=== PATIENT | male | born 1950 ===

== ENCOUNTER 2017-09-09 11:35 | Emergency (ER) | payer MEDICARE ==
[2017-09-09 11:35] VITALS: BMI 39.9
--- NOTE | 2017-09-09 13:45 | C.PDOC ---
History Of Present Illness 66 y/o male with PMHx of HTN and DM, esrd on hd, m/w/f, sent to ED from same day surgery for potassium of 7.2, drawn this morning prior to bladder surgery. surgery was postponed and pt sent to ed. last hd yesterday. At ED patent is asymptomatic, requesting food and denies dizziness, nausea, vomiting or any other complaints at this time. Time Seen by Provider: 09/09/17 12:30 Chief Complaint (Nursing): Abnormal Labs History Per: Patient History/Exam Limitations: no limitations Onset/Duration Of Symptoms: Hrs Current Symptoms Are (Timing): Still Present Past Medical History Reviewed: Historical Data, Nursing Documentation, Vital Signs Vital Signs: Last Vital Signs Temp 98.6 F 09/09/17 15:58 Pulse 105 H 09/09/17 15:58 Resp 17 09/09/17 15:58 BP 136/79 09/09/17 15:58 Pulse Ox 96 09/09/17 17:55 - Medical History PMH: Anemia, Arthritis, Colonic Polyps, Chronic Kidney Disease Surgical History: No Surg Hx Family History: States: No Known Family Hx - Social History Hx Alcohol Use: No Hx Substance Use: No Review Of Systems Constitutional: Negative for: Fever, Chills Gastrointestinal: Negative for: Nausea, Vomiting Skin: Negative for: Rash Neurological: Negative for: Dizziness Physical Exam - Physical Exam Appears: Non-toxic, No Acute Distress Skin: Warm, Dry, No Rash Head: Atraumatic, Normacephalic Eye(s): bilateral: Normal Inspection Oral Mucosa: Moist Neck: Normal ROM, Supple Cardiovascular: Rhythm Regular Respiratory: Normal Breath Sounds, No Rales, No Rhonchi, No Wheezing Gastrointestinal/Abdominal: Soft, No Tenderness, No Guarding, No Rebound Extremity: Normal ROM, Capillary Refill (<2 seconds) Neurological/Psych: Oriented x3, Normal Speech, Normal Cognition ED Course And Treatment - Laboratory Results Result Diagrams: 09/09/17 13:47 ECG: Interpreted By Me, Viewed By Me ECG Rhythm: Sinus Rhythm Interpretation Of ECG: nsr, left axis deviation, no peaked t waves noted O2 Sat by Pulse Oximetry: 96 (RA) Pulse Ox Interpretation: Normal Medical Decision Making Medical Decision Making: Plan: ECG and BMP ordered Progress: Pending Dr. Álvarez call back 230 pm potasisum redrawn in edm now 10/29. no peaked t waves on ekg. discussed with Dr Colby, renal; she sts pt's k is chronically in the low 6's all the time ; pt takes kayexelate at home on regular basis; pt's K likely more elevated than usual because fasting and did not take medication today for pre-op. she requests a dose of 60 g here in the ed and sts pt may be discharged, to take an extra dose tonight at home, and go for hd tomorrow. Disposition Counseled Patient/Family Regarding: Studies Performed, Diagnosis, Need For Followup - Disposition Referrals: Lola Colby MD [Medical Doctor] - Disposition: HOME/ ROUTINE Disposition Time: 15:41 Condition: GOOD Additional Instructions: [place] shyla dosis extra de Kayexelate esta noche; ir a la dilisis dennis est programado maana. Reprograme gutierrez procedimiento con el Dr. Uribe. Carline un seguimiento con el Dr. Colby.Take extra dose Kayexelate tonight; go for dialysis as scheduled tomorrow. Reschedule your procedure with Dr Uribe. Follow up with Dr Colby Forms: Gen Discharge Inst Barbadian, [employer] (Barbadian) Print Language: GUINEAN - Clinical Impression Clinical Impression: Hyperkalemia - PA / KELP GATHERER / Resident Statement MD/DO has reviewed & agrees with the documentation as recorded. - Scribe Statement The provider has reviewed the documentation as recorded by the Scribe Young Jose All medical record entries made by the Scribe were at my direction and personally dictated by me. I have reviewed the chart and agree that the record accurately reflects my personal performance of the history, physical exam, medical decision making, and the department course for this patient. I have also personally directed, reviewed, and agree with the discharge instructions and disposition.
[2017-09-09 14:16] LABS: CALCIUM 9.8 mg/dl (8.6-10.4)
[2017-09-09] MEDS ORDERED: Sod Polystyrene Sulf 15 gm/60 ml Susp PO ONE (14:37)
[2017-09-09] MEDS ORDERED: Sod Polystyrene Sulf 15 gm/60 ml Susp ONE (15:05)
[2017-09-09 15:59] VITALS: BP 136/79; PULSE 105; RESP 17; TEMP 98.6
[2017-09-09 17:55] VITALS: O2SAT 96
--- NOTE | 2017-09-11 12:03 | CARD ---
APPROVED REPORT EKG Measurement Heart [id number] <Conclusion> Normal sinus rhythm Left axis deviation Abnormal ECG
== END 2017-09-09 16:03 | disposition home or self-care (01) ==
LOC: C.ER 11:35
DX: E87.5 Hyperkalemia (principal); E11.9 Type 2 diabetes mellitus without complications

== ENCOUNTER → 2017-09-09 | Day surgery (SDC) | payer MEDICARE ==
[2017-09-05 08:57] VITALS: BMI 39.9
[~2017-09-09] MED LIST: Ciprofloxacin 400mg/200ml D5W 0 MG/0 ML BAG IVPB ONE; Gentamicin 160 MG in Sodium Chloride 0.9% 100 ML IVPB ONE; Lidocaine 2% Jelly (Uro-Jet) ONE
[2017-09-09 09:24] VITALS: BP 129/78; PULSE 91; RESP 20; TEMP 97.8; O2SAT 96
[2017-09-09 09:52] LABS: CALCIUM 9.8 mg/dl (8.6-10.4)
--- NOTE | 2017-09-09 13:12 | CP.PCM.CON ---
History of Present Illness - History of Present Illness History of Present Illness: 66 y/o ESRD MWF, anemia, DMII obesity probable MAGEN, here for cystoscopy, possible resection bladder tumor, ultrasound guided prostate biopsy. Denies any chest pain, SOB, palpitations, syncope, n/v, or other symptoms. Past Patient History - Past Medical History & Family History Past Medical History?: Yes - Past Social History Smoking Status: Never Smoked - CARDIAC Hx Cardiac Disorders: No - PULMONARY Hx Respiratory Disorders: No - NEUROLOGICAL Hx Neurological Disorder: Yes Hx Dizziness: Yes (WHEN HYPOGLYCEMIC) - HEENT Hx HEENT Problems: Yes (POOR EYESIGHT) - RENAL Hx Chronic Kidney Disease: Yes Type of Dialysis Access: RIGHT ARM FISTULA Date of Last Dialysis Treatment: 09/08/17 Hx Renal Failure: Yes - ENDOCRINE/METABOLIC Hx Endocrine Disorders: Yes Hx Diabetes Mellitus Type 2: Yes - HEMATOLOGICAL/ONCOLOGICAL Hx Blood Disorders: Yes Hx Anemia: Yes - INTEGUMENTARY Hx Dermatological Problems: No - MUSCULOSKELETAL/RHEUMATOLOGICAL Hx Musculoskeletal Disorders: Yes Hx Arthritis: Yes - GASTROINTESTINAL Hx Gastrointestinal Disorders: Yes - GENITOURINARY/GYNECOLOGICAL Hx Genitourinary Disorders: Yes Hx Hematuria: Yes Hx Prostate Problems: Yes - PSYCHIATRIC Hx Psychophysiologic Disorder: No - SURGICAL HISTORY Hx Surgeries: Yes Hx Vascular Surgery: Yes ( FISTULA LEFT ARM NON FUNCTIONING) Other/Comment: PERMA CATH INSERTION AND REMOVAL - ANESTHESIA Hx Anesthesia: Yes Hx Anesthesia Reactions: No Hx Malignant Hyperthermia: No Has any member of the family had a problem w/ anesthesia?: No Meds Allergies/Adverse Reactions: Allergies Allergy/AdvReac Type Severity Reaction Status Date / Time No Known Allergies Allergy Verified 09/05/17 08:57 Physical Exam - Constitutional Appears: Well, No Acute Distress - ENT Exam ENT Exam: Normal Exam - Respiratory Exam Respiratory Exam: Clear to Auscultation Bilateral - Cardiovascular Exam Cardiovascular Exam: REGULAR RHYTHM - GI/Abdominal Exam GI & Abdominal Exam: Normal Bowel Sounds, Soft - Extremities Exam Extremities exam: Positive for: normal inspection - Neurological Exam Neurological exam: Alert, Oriented x3 - Skin Skin Exam: Normal Color Results - Vital Signs Recent Vital Signs: Last Vital Signs Temp 97.8 F 09/09/17 08:40 Pulse 91 H 09/09/17 08:40 Resp 20 09/09/17 08:40 BP 129/78 09/09/17 08:40 Pulse Ox 96 09/09/17 08:40 - Labs Result Diagrams: 09/09/17 10:15 Labs: Laboratory Results - last 24 hr 09/09/17 09/09/17 09/09/17 09:02 09:18 10:15 Sodium 141 143 Potassium 7.0 H* 7.2 H* Chloride 96 L 97 L Carbon Dioxide 28 30 Anion Gap 23 H 23 H BUN 42 H 41 H Creatinine 11.3 H* 11.9 H* Est GFR ( Amer) 5 5 Est GFR (Non-Af Amer) 5 4 POC Glucose (mg/dL) 124 H Random Glucose 110 109 Calcium 9.8 10.0 09/09/17 12:22 Sodium Potassium Chloride Carbon Dioxide Anion Gap BUN Creatinine Est GFR ( Amer) Est GFR (Non-Af Amer) POC Glucose (mg/dL) 91 Random Glucose Calcium Assessment & Plan - Assessment and Plan (Free Text) Assessment: 66 y/o ESRD MWF, anemia, DMII obesity probable MAGEN, here for cystoscopy, possible resection bladder tumor, ultrasound guided prostate biopsy. Denies any chest pain, SOB, palpitations, syncope, n/v, or other symptoms. Patient states last dialysis yesterday. This morning he has potassium of 7.0, repeat 7.2, and therefore should not proceed to surgery as needs to be optimized. Surgery is non urgent as discussed with Dr. Draper. Patient is aysmptomatic, stable for transport, recommend admission to ER for treatment of hyperkalemia and ECG.
== END | disposition home or self-care (01) ==
LOC: C.SDS 08:23
PROVIDERS: ATTEND Urology
DX: R31.0 Gross hematuria (principal); N18.6 End stage renal disease; Z99.2 Dependence on renal dialysis; E66.9 Obesity, unspecified; D64.9 Anemia, unspecified; Z68.39 Body mass index [BMI] 39.0-39.9, adult; Z53.09 Procedure and treatment not carried out because of other contraindication; E11.22 Type 2 diabetes mellitus with diabetic chronic kidney disease; E87.5 Hyperkalemia
CPT/HCPCS: 36415; 80048; 82948

== ENCOUNTER 2017-09-17 08:10 | Day surgery (SDC) | payer MEDICARE ==
[2017-09-17 09:15] LABS: CALCIUM 10.3 mg/dl (8.6-10.4)
[2017-09-17] MEDS ORDERED: Ciprofloxacin 400mg/200ml D5W 400 MG/200 ML BAG IVPB ONE (10:04)
[2017-09-17] MEDS ORDERED: Propofol 10 mg/ml Inj (20 ML) ONE (10:11)
[2017-09-17] MEDS ORDERED: Gentamicin 160 MG in Sodium Chloride 0.9% 100 ML IVPB ONE (10:15)
[2017-09-17] MEDS ORDERED: Phenylephrine 10 mg/ml Inj ONE (10:25)
[2017-09-17] MEDS ORDERED: Lidocaine 2% Jelly (Uro-Jet) ONE (10:29)
[2017-09-17] MEDS ORDERED: HYDROmorphone 0.5 mg/0.5 ml ISec IVP PRN (11:16)
[2017-09-17 12:32] VITALS: O2SAT 98
[2017-09-17 12:48] VITALS: BP 157/65; PULSE 69; RESP 18; TEMP 98
--- NOTE | 2017-09-18 12:46 | OP ---
PROCEDURE DATE: 09/17/2017 PREOPERATIVE DIAGNOSES: Elevated prostate-specific antigen (95) and bladder mass. POSTOPERATIVE DIAGNOSES: Bladder mass possible median lobe, enlarged prostate with bladder outlet obstruction and compensatory hypertrophy of the bladder. PROCEDURE: Ultrasound-guided transrectal biopsy and cystoscopy and biopsy of bladder mass/median lobe. SURGEON: Jeferson Draper MD DESCRIPTION OF PROCEDURE: The patient was asked to sign a detailed informed consent prior to the procedure. He agreed to the risks and complications of this procedure and its limitations. He was brought in to the room and a time-out was taken according to the rules and regulations of [facility]. The patient was subjected to transrectal ultrasonography and using the ultrasound as a guide using the biopsy guide on the machine, a 12 core biopsy was taken. The patient tolerated this well. There was no rectal bleeding. The patient was then draped and prepped in the usual manner and cystoscoped with #21 Storz panendoscope. The pendulous and membranous urethra was normal. The prostatic urethra showed trilobar hypertrophy of the bladder with considerable outlet obstruction. The bladder was entered atraumatically. There was a mass at the bladder neck, which appeared to be a median lobe. A separate transitional cell tumor could not be ruled out. It was elected to biopsy this area, which was done and the biopsied areas were fulgurated. There was no bleeding. The two path results will determine what the proper therapy is once we are aware of what the pathology is. The patient tolerated this procedure well and was sent to the recovery room in good condition. Jeferson Draper MD
== END 2017-09-17 14:03 | disposition home or self-care (01) ==
LOC: C.SDS 08:10
PROVIDERS: ATTEND Urology
DX: C61 Malignant neoplasm of prostate (principal); R31.0 Gross hematuria; N32.9 Bladder disorder, unspecified; N40.1 Benign prostatic hyperplasia with lower urinary tract symptoms; N13.8 Other obstructive and reflux uropathy
CPT/HCPCS: 36415; 52204; 55700; 76872; 80048; 88305; 88342; C1769; J0744; J1580

== ENCOUNTER 2018-07-06 15:52 | Emergency (ER) | payer MEDICARE, MEDICAID ==
[2018-07-06 16:03] VITALS: BMI 40.7
[2018-07-06] MEDS ORDERED: Sodium Chloride 0.9% 500 ML IV ONE (16:16)
--- NOTE | 2018-07-06 16:50 | RAD ---
Date of service: 07/06/2018 PROCEDURE: CHEST RADIOGRAPH, 1 VIEW HISTORY: SOB COMPARISON: None available. FINDINGS: LUNGS: Clear. PLEURA: No pneumothorax or pleural fluid seen. CARDIOVASCULAR: Aortic atherosclerotic calcifications. Cardiomediastinal silhouette enlarged. OSSEOUS STRUCTURES: Spinal degenerative changes. VISUALIZED UPPER ABDOMEN: Normal. OTHER FINDINGS: None. IMPRESSION: No active disease.
[2018-07-06 17:16] LABS: ALB/GLOB RATIO 1.3 (1.0-2.1); ALBUMIN 5.1 g/dL (3.5-5.0); CALCIUM 9.2 mg/dl (8.6-10.4)
[2018-07-06 17:24] LABS: BASO # 0.1 K/uL (0.0-0.2); EOS # 0.2 K/uL (0.0-0.7); HEMOGLOBIN 15.3 g/dL (12.0-18.0); LYMPH # 0.6 K/uL (1.0-4.3); NRBC % 0.1 % (0.0-2.0)
[2018-07-06 17:25] LABS: TROPONIN I 0.014 ng/mL (0.00-0.120)
[2018-07-06 17:32] LABS: EOS % 2.9 % (0.0-4.0); MEAN CELL VOLUME 94.2 fL (80.0-94.0); MEAN CORPUSCULAR HGB CONC 32.9 g/dL (33.0-37.0); MEAN PLATELET VOLUME 9.4 fL (7.2-11.7); MONO # 0.5 K/uL (0.0-0.8); MONO % 7.4 % (0.0-10.0); NEUT # 4.7 K/uL (1.8-7.0); RBC 4.95 Mil/uL (4.40-5.90); RED CELL DISTRIBUTION WIDTH 15.5 % (11.5-14.5); WHITE BLOOD COUNT 6.1 K/uL (4.8-10.8)
[2018-07-06 17:35] LABS: LYMPH % 10.3 % (20.0-40.0)
--- NOTE | 2018-07-06 17:41 | C.PDOC ---
History Of Present Illness 67 year old male presents to ED with complaint of feeling lethargic. Patient came with sister after dialysis. He frequently feels this way after a full session. Patient states he took off 4 kg. Patient denies nausea, vomiting, and light-headedness. Time Seen by Provider: 07/06/18 16:11 Chief Complaint (Nursing): Weakness/Neurological Deficit History Per: Patient History/Exam Limitations: no limitations Onset/Duration Of Symptoms: Hrs Current Symptoms Are (Timing): Still Present Associated Symptoms Preceding Syncopal Episode: denies: Lightheadedness Past Medical History Reviewed: Historical Data, Nursing Documentation, Vital Signs Vital Signs: Last Vital Signs Temp 97.6 F 07/06/18 16:03 Pulse 97 H 07/06/18 17:23 Resp 19 07/06/18 17:23 BP 98/54 L 07/06/18 17:23 Pulse Ox 98 07/06/18 17:23 - Medical History PMH: Anemia, Arthritis, Colonic Polyps, Chronic Kidney Disease Surgical History: No Surg Hx Family History: States: Unknown Family Hx - Social History Hx Alcohol Use: No Hx Substance Use: No Review Of Systems Constitutional: Positive for: Other (lethargic). Negative for: Fever, Chills Cardiovascular: Negative for: Chest Pain, Palpitations, Light Headedness Respiratory: Negative for: Cough, Shortness of Breath Gastrointestinal: Negative for: Nausea, Vomiting Neurological: Negative for: Weakness, Numbness, Dizziness Physical Exam - Physical Exam Appears: Well, Non-toxic, No Acute Distress, Other (obese) Skin: Normal Color, Warm, Dry Head: Atraumatic, Normacephalic Neck: Normal ROM, Supple Chest: Symmetrical, No Deformity Respiratory: No Accessory Muscle Use Extremity: Capillary Refill (<2 seconds) Extremity: Right: Other (AV fistula in upper arm) Pulses: Left Radial: Normal, Right Radial: Normal Neurological/Psych: Oriented x3, Normal Speech, Normal Cognition ED Course And Treatment - Laboratory Results Result Diagrams: 07/06/18 17:18 07/06/18 16:48 Lab Results: Troponin I 0.0140 ng/mL (0.00-0.120) 07/06/18 16:48 NT-Pro-B Natriuret Pep 754 pg/mL (0-900) 07/06/18 16:48 Total Bilirubin 0.6 mg/dL (0.2-1.3) 07/06/18 16:48 AST 21 U/L (17-59) 07/06/18 16:48 ALT 6 U/L (21-72) L 07/06/18 16:48 Alkaline Phosphatase 69 U/L (38-126) 07/06/18 16:48 Total Protein 8.9 g/dL (6.3-8.3) H 07/06/18 16:48 Albumin 5.1 g/dL (3.5-5.0) H 07/06/18 16:48 Globulin 3.9 gm/dL (2.2-3.9) 07/06/18 16:48 Albumin/Globulin Ratio 1.3 (1.0-2.1) 07/06/18 16:48 Lab Interpretation: Abnormal (baseline, unclear if he completed HD today, as creat 10.3 elevated for s/p HD) ECG: Interpreted By Me ECG Rhythm: Sinus Rhythm ECG Interpretation: Normal Rate From EC O2 Sat by Pulse Oximetry: 98 Pulse Ox Interpretation: Normal - Radiology CXR: Interpreted by Me CXR Interpretation: Yes: No Acute Disease Progress Note: EKG and CXR ordered for patient. Labs ordered with troponin and B-type natruitic peptide for patient. Patient given IV fluids. Upon reassessment, patient is resting comfortably, in no distress, and is stable for discharge. Patient was advised to follow-up with Dr. Foley. Patient is advised to return to ED if symptoms persist or worsen. Reevaluation Time: 17:42 Reassessment Condition: Improved Medical Decision Making Medical Decision Making: lethargy s/p HD today creat 10.3 s/p HD feels better after 500 cc NS, wants d/c home. Disposition Doctor Will See Patient In The: Office Counseled Patient/Family Regarding: Studies Performed, Diagnosis - Disposition Referrals: Beck Foley MD [Staff Provider] - Disposition: HOME/ ROUTINE Disposition Time: 17:42 Condition: GOOD Additional Instructions: sigue con gutierrez Nephrologo dennis normal Instructions: Fatigue (DC), Weakness (ED) Forms: [facility] (Moldovan) Print Language: ICELANDIC - Clinical Impression Clinical Impression: Weakness - Scribe Statement The provider has reviewed the documentation as recorded by the Scribe (Amanda Chamberlain) All medical record entries made by the Scribe were at my direction and personally dictated by me. I have reviewed the chart and agree that the record accurately reflects my personal performance of the history, physical exam, medical decision making, and the department course for this patient. I have also personally directed, reviewed, and agree with the discharge instructions and disposition.
[2018-07-06 18:16] VITALS: BP 81/55; PULSE 95; RESP 17
[2018-07-06 18:20] VITALS: TEMP 97.8
[2018-07-06 19:51] VITALS: O2SAT 98
== END 2018-07-06 18:31 | disposition home or self-care (01) ==
LOC: C.ER 15:52
DX: R53.1 Weakness (principal)
CPT/HCPCS: 71045; 80053; 83880; 84484; 85025; 93005; 99285; J7040